=== PATIENT | male | born 1940 | race Caucasian/White ===

== ENCOUNTER 2017-07-17 14:23 | Emergency (ER) | payer OTHER ==
[~2017-07-17] VITALS: Ht 175.3 cm; Wt 91.0 kg
[~2017-07-17 14:23] MED LIST: ALLO100T PO; ASPI325T PO; ATOR20TA42 PO; CALC0.25 PO; FURO1TAB93 PO; GLUCTAB PO; KLOR20TA6 PO; SYNT25TA PO
[2017-07-17 14:27] VITALS: BP 172/86; PULSE 105; RESP 16; TEMP 98.6; O2SAT 95
[2017-07-17] MEDS ORDERED: FURO40TA PO (14:49)
[2017-07-17] MEDS ORDERED: ALLO100T PO (14:49)
[2017-07-17] MEDS ORDERED: ASPI-183 PO (14:49)
[2017-07-17] MEDS ORDERED: LEVO150T7 PO (14:49)
[2017-07-17] MEDS ORDERED: CALCITROL PO (14:49)
[2017-07-17] MEDS ORDERED: METF500T PO (14:49)
[2017-07-17] MEDS ORDERED: POTASSIUM PO (14:49)
[2017-07-17] MEDS ORDERED: ATOR80TA45 PO (14:49)
[2017-07-17] MEDS ORDERED: CYAN1TAB24 (14:49)
--- NOTE | 2017-07-17 14:57 | PD ---
HPI Chief Complaint: Complaint Time Seen by Provider: 14:42 Travel History International Travel<30 days: No Contact w/Intl Traveler<30days: No Traveled to known affect area: No History of Present Illness HPI 76-year-old male says he having pain in the right groin area. He says he noted swelling of his right testicle. He is quite sure that this just started last Monday. There is no history of injury. He did have prostate cancer in 2010 and had [address] Borrego. He does not have any dysuria or fever. He has not been had vomiting or diarrhea. He says is quite painful PFSH Past Medical History Cancer: No Cardiovascular Problems: Yes (cad) High Cholesterol: Yes Congestive Heart Failure: Yes COPD: Yes Diabetes: Yes (TYPE 2) Patient Takes Glucophage: Yes Diminished Hearing: No Glaucoma: No Genitourinary: Yes (prostate ca) Hepatitis: No Hiatal Hernia: No Hypertension: Yes Respiratory: No Myocardial Infarction: Yes Thyroid Disease: Yes Influenza Vaccination: No Past Surgical History Cardiac Surgery: Yes (triple cardiac by-pass) Coronary Artery Bypass Graft: Yes (TRIPLE 2001) Oral Surgery: Yes (tonsillectomy) Pacemaker: No Other Surgery: Yes Social History Alcohol Use: Yes (occ) Tobacco Use: No Substance Use: No Allergies-Medications (Allergen,Severity, Reaction): Coded Allergies: diatrizoate meglumine (Unverified Allergy, Severe, hives, 07/17/17) gadobenic acid (Unverified Allergy, Severe, hives, 07/17/17) gadodiamide (Unverified Allergy, Severe, hives, 07/17/17) gadoteridol (Unverified Allergy, Severe, hives, 07/17/17) iodine (Unverified Allergy, Severe, RASH, 07/17/17) iodixanol (Unverified Allergy, Severe, hives, 07/17/17) iohexol (Unverified Allergy, Severe, hives, 07/17/17) potassium iodide (Unverified Allergy, Severe, RASH, 07/17/17) povidone-iodine (Unverified Allergy, Severe, RASH, 07/17/17) sodium iodide (Unverified Allergy, Severe, RASH, 07/17/17) sodium iodide (Unverified Allergy, Severe, RASH, 07/17/17) Reported Meds & Prescriptions Reported Meds & Active Scripts Active Reported [Potassium] 20 Mg PO DAILY Metformin (Metformin HCl) 500 Mg Tab 500 Mg PO BID With a meal Levothyroxine (Levothyroxine Sodium) 150 Mcg Tab 150 Mcg PO DAILY Furosemide 40 Mg Tab 40 Mg PO DAILY Allopurinol 100 Mg Tab 100 Mg PO DAILY [Calcitrol] 25 Mg PO DAILY B12 (Cyanocobalamin) 1,000 Mcg Tab 1,000 Mg Atorvastatin (Atorvastatin Calcium) 80 Mg Tab 80 Mg PO HS Aspirin 325 Mg Tab 325 Mg PO DAILY Review of Systems General / Constitutional: No: Fever, Chills Eyes: No: Diploplia, Blurred Vision HENT: No: Headaches, Vertigo Cardiovascular: No: Chest Pain or Discomfort, Palpitations Respiratory: No: Cough, Shortness of Breath Gastrointestinal: Positive: Abdominal Pain, No: Nausea, Vomiting Genitourinary: Positive: Other (Swollen testicle) Musculoskeletal: No: Myalgias, Arthralgias Skin: No Rash Endocrine: No: Heat Intolerance, Cold Intolerance Hematologic/Lymphatic: No: Easy Bruising Physical Exam Narrative GENERAL: Well-developed male SKIN: Focused skin assessment warm/dry. HEAD: Atraumatic. Normocephalic. EYES: Pupils equal and round. No scleral icterus. No injection or drainage. ENT: No nasal bleeding or discharge. Mucous membranes pink and moist. NECK: Trachea midline. No JVD. CARDIOVASCULAR: Regular rate and rhythm. No murmur appreciated. RESPIRATORY: No accessory muscle use. Clear to auscultation. Breath sounds equal bilaterally. GASTROINTESTINAL: Abdomen soft, non-tender, nondistended. Hepatic and splenic margins not palpable. I do not feel any hernia defects. The right testicle is firm and somewhat tender. It is about the size of a lemon MUSCULOSKELETAL: No obvious deformities. No clubbing. No cyanosis. No edema. NEUROLOGICAL: Awake and alert. No obvious cranial nerve deficits. Motor grossly within normal limits. Normal speech. PSYCHIATRIC: Appropriate mood and affect; insight and judgment normal. Data Data Last Documented VS Vital Signs Date Time Temp Pulse Resp B/P (MAP) Pulse Ox O2 Delivery O2 Flow Rate FiO2 07/17/17 14:27 98.6 105 16 172/86 (114) 95 Orders Orders Complete Blood Count With Diff (07/17/17 14:50) Comprehensive Metabolic Panel (07/17/17 14:50) Ua Includes Microscopic (07/17/17 14:50) Us Testicles W Doppler (07/17/17 14:50) Sodium Chloride 0.9% Flush (Ns Flush) (07/17/17 15:00) MDM Medical Decision Making Medical Screen Exam Complete: Yes Emergency Medical Condition: Yes Medical Record Reviewed: Yes Differential Diagnosis Differential includes hernia, hydrocele, tumor Narrative Course Ultrasound and lab work have been ordered Elio Faustin MD Jul 17, 2017 14:57
[2017-07-17] MEDS ORDERED: SODIUM CHLORIDE 0.9% FLUSH 10 ML FLUSH IVF PRN (15:00)
--- NOTE | 2017-07-17 15:18 | PD ---
Physical Exam Date Seen by Provider: Jul 17, 2017 Data Data Last Documented VS Vital Signs Date Time Temp Pulse Resp B/P (MAP) Pulse Ox O2 Delivery O2 Flow Rate FiO2 07/17/17 17:24 100 16 176/97 (123) 96 Room Air 07/17/17 14:27 98.6 Orders Orders Complete Blood Count With Diff (07/17/17 14:50) Comprehensive Metabolic Panel (07/17/17 14:50) Ua Includes Microscopic (07/17/17 14:50) Us Testicles W Doppler (07/17/17 14:50) Sodium Chloride 0.9% Flush (Ns Flush) (07/17/17 15:00) Urine Culture (07/17/17 15:30) Ceftriaxone Inj (Rocephin Inj) (07/17/17 16:15) Labs Laboratory Tests Test 07/17/17 15:00 07/17/17 15:30 White Blood Count 7.7 TH/MM3 Red Blood Count 4.56 MIL/MM3 Hemoglobin 13.6 GM/DL Hematocrit 40.9 % Mean Corpuscular Volume 89.6 FL Mean Corpuscular Hemoglobin 29.9 PG Mean Corpuscular Hemoglobin Concent 33.3 % Red Cell Distribution Width 13.8 % Platelet Count 148 TH/MM3 Mean Platelet Volume 9.5 FL Neutrophils (%) (Auto) 73.2 % Lymphocytes (%) (Auto) 11.6 % Monocytes (%) (Auto) 12.4 % Eosinophils (%) (Auto) 0.5 % Basophils (%) (Auto) 2.3 % Neutrophils # (Auto) 5.6 TH/MM3 Lymphocytes # (Auto) 0.9 TH/MM3 Monocytes # (Auto) 1.0 TH/MM3 Eosinophils # (Auto) 0.0 TH/MM3 Basophils # (Auto) 0.2 TH/MM3 CBC Comment DIFF FINAL Differential Comment Blood Urea Nitrogen 19 MG/DL Creatinine 1.10 MG/DL Random Glucose 171 MG/DL Total Protein 8.2 GM/DL Albumin 3.3 GM/DL Calcium Level 9.3 MG/DL Alkaline Phosphatase 85 U/L Aspartate Amino Transf (AST/SGOT) 26 U/L Alanine Aminotransferase (ALT/SGPT) 20 U/L Total Bilirubin 1.0 MG/DL Sodium Level 133 MEQ/L Potassium Level 4.6 MEQ/L Chloride Level 98 MEQ/L Carbon Dioxide Level 27.1 MEQ/L Anion Gap 8 MEQ/L Estimat Glomerular Filtration Rate 65 ML/MIN Urine Color YELLOW Urine Turbidity CLEAR Urine pH 5.5 Urine Specific Perley 1.020 Urine Protein 100 mg/dL Urine Glucose (UA) NEG mg/dL Urine Ketones NEG mg/dL Urine Occult Blood MOD Urine Nitrite NEG Urine Bilirubin NEG Urine Urobilinogen 0.2 MG/DL Urine Leukocyte Esterase SMALL Urine RBC 10-14 /hpf Urine WBC 100-200 /hpf Urine Squamous Epithelial Cells 0-5 /hpf Urine Bacteria MOD /hpf Microscopic Urinalysis Comment CULTURE INDICATED MDM Medical Record Reviewed: Yes Supervised Visit with ALEJANDRO: No Interpretation(s) Vital Signs Date Time Temp Pulse Resp B/P (MAP) Pulse Ox O2 Delivery O2 Flow Rate FiO2 07/17/17 14:27 98.6 105 16 172/86 (114) 95 Differential Diagnosis Hiatal hernia, tumor, hydrocele Narrative Course Patient sent out to me by Dr. Miramontes a change of shift. Please see previous records for full HPI and workup of patient. Patient is a 76-year-old male who was complaining of right-sided groin pain and swelling which he noted started this past Monday. Patient denies any injuries, reports history of prostate cancer in 2010 when he had [address] Borrego - reports that he was told that he was cancer free at this time. Patient with no fever or chills, patient with no abdominal pain, nausea vomiting, no constipation or diarrhea. Patient only reports of mild constant pain with swelling to his right testicle. Lab work as well as ultrasound is pending. Laboratory Tests Test 07/17/17 15:00 07/17/17 15:30 White Blood Count 7.7 TH/MM3 (4.0-11.0) Red Blood Count 4.56 MIL/MM3 (4.50-5.90) Hemoglobin 13.6 GM/DL (13.0-17.0) Hematocrit 40.9 % (39.0-51.0) Mean Corpuscular Volume 89.6 FL (80.0-100.0) Mean Corpuscular Hemoglobin 29.9 PG (27.0-34.0) Mean Corpuscular Hemoglobin Concent 33.3 % (32.0-36.0) Red Cell Distribution Width 13.8 % (11.6-17.2) Platelet Count 148 TH/MM3 (150-450) Mean Platelet Volume 9.5 FL (7.0-11.0) Neutrophils (%) (Auto) 73.2 % (16.0-70.0) Lymphocytes (%) (Auto) 11.6 % (9.0-44.0) Monocytes (%) (Auto) 12.4 % (0.0-8.0) Eosinophils (%) (Auto) 0.5 % (0.0-4.0) Basophils (%) (Auto) 2.3 % (0.0-2.0) Neutrophils # (Auto) 5.6 TH/MM3 (1.8-7.7) Lymphocytes # (Auto) 0.9 TH/MM3 (1.0-4.8) Monocytes # (Auto) 1.0 TH/MM3 (0-0.9) Eosinophils # (Auto) 0.0 TH/MM3 (0-0.4) Basophils # (Auto) 0.2 TH/MM3 (0-0.2) CBC Comment DIFF FINAL Differential Comment Blood Urea Nitrogen 19 MG/DL (7-18) Creatinine 1.10 MG/DL (0.60-1.30) Random Glucose 171 MG/DL (74-106) Total Protein 8.2 GM/DL (6.4-8.2) Albumin 3.3 GM/DL (3.4-5.0) Calcium Level 9.3 MG/DL (8.5-10.1) Alkaline Phosphatase 85 U/L (45-117) Aspartate Amino Transf (AST/SGOT) 26 U/L (15-37) Alanine Aminotransferase (ALT/SGPT) 20 U/L (12-78) Total Bilirubin 1.0 MG/DL (0.2-1.0) Sodium Level 133 MEQ/L (136-145) Potassium Level 4.6 MEQ/L (3.5-5.1) Chloride Level 98 MEQ/L (98-107) Carbon Dioxide Level 27.1 MEQ/L (21.0-32.0) Anion Gap 8 MEQ/L (5-15) Estimat Glomerular Filtration Rate 65 ML/MIN (>89) Urine Color YELLOW (YELLW/STRAW) Urine Turbidity CLEAR (CLEAR) Urine pH 5.5 (5.0-8.5) Urine Specific Perley 1.020 (1.002-1.035) Urine Protein 100 mg/dL (NEG-TRACE) Urine Glucose (UA) NEG mg/dL (NEG) Urine Ketones NEG mg/dL (NEG) Urine Occult Blood MOD (NEG) Urine Nitrite NEG (NEG) Urine Bilirubin NEG (NEG) Urine Urobilinogen 0.2 MG/DL (LESS THAN Urine Leukocyte Esterase SMALL (NEG) Urine RBC 10-14 /hpf (0-3) Urine WBC 100-200 /hpf (0-5) Urine Squamous Epithelial Cells 0-5 /hpf (0-5) Urine Bacteria MOD /hpf (NONE) Microscopic Urinalysis Comment CULTURE INDICATED Last Impressions Scrotum Ultrasound 07/17/17 1450 Signed Impressions: Service Date/Time: Monday, July 17, 2017 15:42 - CONCLUSION: 1. Bilateral complex hydroceles greater on the right. 2. Right-sided epididymal cysts/spermatoceles. 3. Heterogeneous right sided epididymis. This could be related to epididymitis. Joe Garza MD labs reviewed, ua positive for small leukoesterase, 100-200 white blood cells, moderate bacteria, culture was sent. Patient was given 1 g of IV Rocephin, plan to discharge with a prescription for levofloxacin. Scrotal ultrasound: Blood flow is symmetric to bilateral testicles. There is a complex hydrocele without varicocele with multiple septations to the right testicle. Epididymal cysts were seen as well -this could be related to epididymitis. Plan to discharge home with a prescription for levofloxacin 500 mg for 10 days to treat possible epididymitis as well as UTI. Patient will follow up with his cultures from today, he will also follow with urologist. Signs and symptoms of when to return to the emergency room was reviewed with patient in detail. Diagnosis Primary Impression: Epididymitis, right Additional Impressions: Hydrocele in adult UTI (urinary tract infection) Qualified Codes: N30.01 - Acute cystitis with hematuria Referrals: Jaden Lucia DO Patient Instructions: General Instructions Additional Instruction: Please provide patient with a copy of their lab work and studies at discharge* * Please follow up with your primary care doctor in 2-3 days Return to the ER if symptoms worsen or progress Return to the ER as needed Please follow-up with urologist as soon as possible Med/Other Pt SpecificInfo: Prescription(s) given Scripts Levofloxacin (Levaquin) 500 Mg Tablet 500 MG PO DAILY for Infection for 10 Days, #10 TAB 0 Refills Prov: Tawanna Savage DO 07/17/17 Disposition: 01 DISCHARGE HOME Condition: Stable Tawanna Savage DO Jul 17, 2017 15:18
[2017-07-17 15:20] LABS: AUTOMATED NEUTROPHIL # 5.6 TH/MM3 (1.8-7.7); BASOPHIL # 0.2 TH/MM3 (0-0.2); BASOPHIL % 2.3 % (0.0-2.0); EOSINOPHIL % 0.5 % (0.0-4.0); HEMATOCRIT 40.9 % (39.0-51.0); HEMOGLOBIN 13.6 GM/DL (13.0-17.0); LYMPH % 11.6 % (9.0-44.0); LYMPHOCYTE # 0.9 TH/MM3 (1.0-4.8); MEAN CELL VOLUME 89.6 FL (80.0-100.0); MEAN CORPUSCULAR HEMOGLOBIN 29.9 PG (27.0-34.0); MEAN CORPUSCULAR HGB CONC 33.3 % (32.0-36.0); MEAN PLATELET VOLUME 9.5 FL (7.0-11.0); MONO % 12.4 % (0.0-8.0); NEUT % 73.2 % (16.0-70.0); PLATELET COUNT 148 TH/MM3 (150-450); RED BLOOD COUNT 4.56 MIL/MM3 (4.50-5.90); RED CELL DISTRIBUTION WIDTH 13.8 % (11.6-17.2); WHITE BLOOD COUNT 7.7 TH/MM3 (4.0-11.0)
[2017-07-17 15:38] LABS: BILIRUBIN, URINE NEG (NEG); BLOOD, URINE MOD (NEG); GLUCOSE,URINE NEG (NEG); KETONE, URINE NEG (NEG); NITRITE,URINE NEG (NEG); PH, URINE 5.5 (5.0-8.5); URINE COLOR YELLOW (YELLW/STRAW); URINE LEUKOCYTE ESTERASE SMALL (NEG)
[2017-07-17 15:39] LABS: CHLORIDE 98 MEQ/L (98-107); SODIUM (NA) 133 MEQ/L (136-145)
[2017-07-17 15:43] LABS: ALBUMIN 3.3 GM/DL (3.4-5.0); BICARBONATE 27.1 MEQ/L (21.0-32.0); BLOOD UREA NITROGEN 19 MG/DL (7-18); CALCIUM 9.3 MG/DL (8.5-10.1); GLUCOSE,RANDOM 171 MG/DL (74-106)
[2017-07-17 15:45] LABS: BACTERIA, URINE MOD /hpf; SQUAMOUS EPITHELIAL CELL URINE 0-5 /hpf (0-5); WBC, URINE 100-200 /hpf (0-5)
[2017-07-17 15:46] LABS: ALT (GPT) 20 U/L (12-78); AST (GOT) 26 U/L (15-37)
[2017-07-17 15:47] LABS: GLOMERULAR FILTRATION RATE 65 ML/MIN (>89)
[2017-07-17 15:48] LABS: TOTAL PROTEIN 8.2 GM/DL (6.4-8.2)
[2017-07-17 15:49] LABS: ALKALINE PHOSPHATASE 85 U/L (45-117)
[2017-07-17] MEDS ORDERED: cefTRIAXone INJ 1,000 MG in SODIUM CHLORIDE 0.9% INJ 100 ML IV ONE (16:15)
[2017-07-17 16:29] VITALS: BP 176/97; PULSE 97; RESP 20; O2SAT 97
--- NOTE | 2017-07-17 16:34 | RADRPT ---
EXAM DATE/TIME: 07/17/2017 15:42 [facility] COMPARISON: No previous studies available for comparison. INDICATIONS : Right testicle pain and swelling. MEDICAL HISTORY : Diabetic. SURGICAL HISTORY : CABG ENCOUNTER: Initial ACUITY: 3 days PAIN SCORE: 8/10 LOCATION: Bilateral scrotum. MEASUREMENTS: RIGHT TESTICLE: 3.9 x 2.7 x 2.6cm LEFT TESTICLE: 2.8 x 2.6 x 2.1cm FINDINGS: RIGHT TESTICLE: Homogeneous echotexture without intra or extratesticular mass. Blood flow is symmetric and within no rmal limits. Complex hydrocele without varicocele. Multiple septations. Epididymal cysts are also see n largest measuring 6 x 5 x 5 mm. Several other cysts are seen in the right scrotum likely larger epi didymal cyst measuring up to 1.4 cm. Heterogeneous epididymis on the right. LEFT TESTICLE: Homogeneous echotexture without intra or extratesticular mass. Blood flow is symmetric and within no rmal limits. Minimally complex hydrocele without varicocele. Epididymis is within normal limits. SCROTUM: Within normal limits. CONCLUSION: 1. Bilateral complex hydroceles greater on the right. 2. Right-sided epididymal cysts/spermatoceles. 3. Heterogeneous right sided epididymis. This could be related to epididymitis. Joe Garza MD on July 17, 2017 at 16:26 Board Certified Radiologist. This report was verified electronically.
[2017-07-17 17:24] VITALS: BP 176/97; PULSE 100; RESP 16; O2SAT 96
[2017-07-17] MEDS ORDERED: LEVA500T33 PO (17:39)
[2017-07-18] MEDS ORDERED: CALC0.25 PO (11:13)
[2017-07-18] MEDS ORDERED: POTA-163 PO (11:13)
== END 2017-07-17 18:10 | disposition home or self-care (01) ==
LOC: PHED 14:23
DX: N45.1 Epididymitis (principal); N43.3 Hydrocele, unspecified; N30.01 Acute cystitis with hematuria; B96.20 Unspecified Escherichia coli [E. coli] as the cause of diseases classified elsewhere; I25.10 Atherosclerotic heart disease of native coronary artery without angina pectoris; I11.0 Hypertensive heart disease with heart failure; I50.9 Heart failure, unspecified; E11.9 Type 2 diabetes mellitus without complications; E07.9 Disorder of thyroid, unspecified
CPT/HCPCS: 76870; 80053; 81001; 85025; 87077; 87086; 87186; 93975; 96365; 96366; 99284; J0696